=== PATIENT | female | born 1975 | race Caucasian/White ===

== ENCOUNTER 2016-11-14 13:30 | Inpatient (IN) | payer OTHER ==
[2016-11-14] MEDS ORDERED: AMPICILLIN - 2 GM in SODIUM CHLORIDE 100 ML IVPB ONE (14:30)
[2016-11-14 14:38] VITALS: BMI 39.2
[2016-11-14 15:03] LABS: INR 0.86 (0.82-1.09); PROTHROMBIN TIME (PATIENT) 9.4 SEC (9.98-11.88)
[2016-11-14 15:06] LABS: ACTIVATED PTT 29.2 SECONDS (26.9-34.4)
--- NOTE | 2016-11-14 17:17 | HP ---
Admitting History and Physical - Admission Chief Complaint: post dates, iol History of Present Illness: 41 y/o at 40 weeks, iol, 3 cm, pt park of care History Source: Patient Limitations to Obtaining History: No Limitations - Past Medical History [employer]: No: Alzheimer's, CVA, Dementia, Migraine, Multiple Sclerosis, Peripheral Neuropathy, Parkinson's, Seizure, Syncope, TIA, Vertigo, Other Cardiovascular: No: AFIB, Aneurysm, Aortic Insufficiency, Aortic Stenosis, CAD, CHF, Deep Vein Thrombosis, HTN, Hyperlipdemia, ID, Mitral Insufficiency, Mitral Stenosis, Murmur, Pulmonary Hypertension, Other Pulmonary: No: Asthma, Bronchitis, Cancer, COPD, O2 Dependent, Pneumonia, Previously Intubated, Pulmonary Embolus, Pulmonary Fibrosis, Sleep Apnea, Other Gastrointestinal: No: Ascites, Cancer, Constipation, Crohn's Disease, Diverticulitis, Diverticulosis, Esophageal Varices, Gastritis, GERD, GI Bleed, Hemorrhoids, Hiatal Hernia, Inflamatory Bowel Disease, Irritable Bowel Disease, Pancreatitis, Peptic Ulcer Disease, Ulcerative Colitis, Other Hepatobiliary: No: Cirrhosis, Cholelithiasis, Cholecystitis, Choledocholithiasis , Hepatitis A, Hepatitis B, Hepatitis C, Other Reproductive: No: Ectopic , Endometriosis, Fibroids, PID, Polycystic Ovary Syndrome, Postmenopausal, Other ...: 5 ...Para: 4 Heme/Onc: No: Anemia, B12 Deficiency, Bleeding Disorder, Cancer, Current Chemotherapy, Current Radiation Therapy, Hemochromatosis, Hypercoaguable State, Myeloproliferative Synd, Sickle Cell Disease, Sickle Cell Trait, Thrombocytopenia, Other Infectious Disease: No: AIDS, C-Diff, Herpes Zoster, HIV, MRSA, STD's, Tuberculosis, VREF, Other Psych: No: Addictions, Anxiety, Bipolar, Depression, Panic, Psychosis, Schizophrenia, Other ENT: No: Allergic Rhinitis, Sinusitis, Other Endocrine: No: Jonatan's Disease, Dwight's Disease, Diabetes Insipidus, Diabetes Mellitus, Hyperparathyroidism, Hyperthyroidism, Hypothyroidism, Osteopenia, SIADH, Other - Past Surgical History Past Surgical History: No: None, AAA Repair, AICD, Amputation, Appendectomy, Arthrosocopy, AV Fistula/Graft, Bariatric Surgery, Breast Biopsy, Bypass, CABG, Carotid Endarterectomy, Cataract Removal, Cholecystectomy, Colectomy, Colonoscopy, Colostomy, Craniotomy, , Cystectomy, Hernia Repair, Hysterectomy, Ileal Conduit, Ileosotomy, Joint Replacement, Kidney Transplant, Laminectomy, Liver Transplant, Mastectomy, Nephrectomy, Oopherectomy, Orchiectomy, Permanent Pacemaker, Prostatectomy, Splenectomy, Stent, Thoracotomy , TURP, Tonsillectomy, Tubal Ligation, Upper Endoscopy, Valve Replacement, Vasectomy, Vein Stripping/Ligation - Advance Directives Advance Directives: No: Living Will, Health Care Proxy, DNR, Organ Donor, Tissue Donor, MOLST - Smoking History Smoking history: Never smoked Have you smoked in the past 12 months: No - Alcohol/Substance Use Hx Alcohol Use: No History of Substance Use: denies: None, Cocaine, Heroin, Marijuana, Prescription , Tranquilizers - Social History Usual Living Arrangement: No: Alone, With Spouse, With Parent, With Significant Other, With Child, Assisted Living, Retirement, Other Home Medications - Allergies Allergies/Adverse Reactions: Allergies Allergy/AdvReac Type Severity Reaction Status Date / Time No Known Allergies Allergy Verified 11/14/16 14:27 - Home Medications Home Medications: Ambulatory Orders Vit No.130/Iron/FA [ Vitamins] 1 each PO DAILY 11/14/16 Review of Systems - Review of Systems Constitutional: reports: No Symptoms Eyes: reports: No Symptoms HENT: reports: No Symptoms Neck: reports: No Symptoms Cardiovascular: reports: No Symptoms Respiratory: reports: No Symptoms Gastrointestinal: reports: No Symptoms Genitourinary: reports: No Symptoms Breasts: reports: No Symptoms Reported Musculoskeletal: reports: No Symptoms Integumentary: reports: No Symptoms Neurological: reports: No Symptoms Endocrine: reports: No Symptoms Physical Examination Vital Signs: Vital Signs Temperature 98.2 F 11/14/16 16:00 Pulse Rate 69 11/14/16 16:00 Respiratory Rate 20 11/14/16 16:00 Blood Pressure 123/56 11/14/16 16:00 O2 Sat by Pulse Oximetry (%) Constitutional: Yes: Well Nourished Eyes: Yes: WNL HENT: Yes: WNL Neck: Yes: WNL Cardiovascular: Yes: WNL Respiratory: Yes: WNL Gastrointestinal: Yes: WNL ...Rectal Exam: Yes: WNL Renal/: Yes: WNL Breast(s): Yes: WNL Musculoskeletal: Yes: WNL Extremities: Yes: WNL Integumentary: Yes: WNL Neurological: Yes: WNL ...Motor Strength: WNL Assessment/Plan as above admit labs pitocin
[2016-11-14] MEDS ORDERED: OXYTOCIN 15 UNITS/ LR 250 ML 250 ML IVPB SCH (17:30)
[2016-11-14] MEDS ORDERED: DEXTROSE 5%-LACTATED RINGERS 1,000 ML IV SCH (17:30)
--- NOTE | 2016-11-14 18:12 | PN ---
Ante-Partal Exam - Subjective Vital Signs: Vital Signs Temperature 98.8 F 11/14/16 18:00 Pulse Rate 74 11/14/16 18:00 Respiratory Rate 18 11/14/16 18:00 Blood Pressure 131/61 11/14/16 18:00 O2 Sat by Pulse Oximetry (%) Bleeding: No Headache: No Visual changes: No Right upper quadrant pain: No - Contractions Contractions: Yes Regularity: Regular Intensity: Moderate Monitor Mode: External - Exam during Labor Heart Rate: 150 Variability: Moderate Category: I Monitor Accelerations: Present Monitor Decelerations: None Exam: Vaginal Dilatation (cm): 3 Effacement (%): 60 Amniotic Membrane Status: Ruptured Amniotic Fluid: Clear, Blood Stained
[2016-11-14] MEDS ORDERED: AMPICILLIN - 1 GM in SODIUM CHLORIDE 100 ML IVPB ONE (18:30)
--- NOTE | 2016-11-14 19:28 | PN ---
Ante-Partal Exam - Subjective Vital Signs: Vital Signs Temperature 98.7 F 11/14/16 19:00 Pulse Rate 70 11/14/16 19:00 Respiratory Rate 18 11/14/16 19:00 Blood Pressure 128/57 11/14/16 19:00 O2 Sat by Pulse Oximetry (%) Bleeding: No Headache: No Visual changes: No Right upper quadrant pain: No - Contractions Contractions: Yes Regularity: Regular Intensity: Mild/Mod Monitor Mode: External - Exam during Labor Heart Rate: 5 Category: I Monitor Accelerations: Present Monitor Decelerations: None Exam: Vaginal Dilatation (cm): 5 Effacement (%): 80 Amniotic Membrane Status: Ruptured Nitrazine Test: Positive Station: -1
[2016-11-14 20:50] LABS: BASOPHIL 0.8 % (0-2.0); EOSINOPHIL 0.6 % (0-4.5); MCH 31.7 pg (25.7-33.7); MCHC 33.8 g/dl (32.0-36.0); MEAN CELL VOLUME 93.6 fl (80-96); NEUTROPHILS 66.2 % (42.8-82.8); PLATELET COUNT 214 K/MM3 (134-434); RDW 12.9 % (11.6-15.6); WHITE BLOOD COUNT 10.4 K/mm3 (4.0-10.0)
--- NOTE | 2016-11-14 20:53 | PN ---
Ante-Partal Exam - Subjective Vital Signs: Vital Signs Temperature 98.7 F 11/14/16 19:00 Pulse Rate 70 11/14/16 19:00 Respiratory Rate 18 11/14/16 19:00 Blood Pressure 128/57 11/14/16 19:00 O2 Sat by Pulse Oximetry (%) Headache: No Visual changes: No Right upper quadrant pain: No - Contractions Contractions: No - Exam during Labor Category: I Monitor Accelerations: Present Monitor Decelerations: None Exam: Vaginal Dilatation (cm): 9 Effacement (%): 100 Amniotic Membrane Status: Ruptured Nitrazine Test: Positive Amniotic Fluid: Clear Presentation: Vertex Station: +1
[2016-11-14] MEDS: OXYTOCIN 20 UNITS in 0.9% NS 1,000 ML IV SCH (21:00)
[2016-11-14] MEDS ORDERED: IBUPROFEN 600 MG TABLET (FP) PO PRN (21:09)
[2016-11-14] MEDS ORDERED: WITCH HAZEL 50% (TUCKS) 40 PAD/JAR PAD TP PRN (21:09)
[2016-11-14] MEDS ORDERED: BENZOCAINE 28 GM HEMORRHOIDAL OINTMENT TP PRN (21:09)
[2016-11-14] MEDS ORDERED: ACETAMINOPHEN 325 MG TABLET (FP) PO PRN (21:09)
[2016-11-14] MEDS ORDERED: METHYLERGONOVINE MALEATE 0.2 MG/1 ML AMP IM PRN (21:09)
[2016-11-14] MEDS ORDERED: BENZOCAINE 20% 57 GM BOTTLE TP PRN (21:09)
[2016-11-14] MEDS ORDERED: BISACODYL 10 MG SUPP.RECT RC PRN (21:09)
--- NOTE | 2016-11-14 21:09 | PN ---
Delivery - Delivery Vaginal Delivery: No Problems Type of Anesthesia: None Episiotomy/Laceration: Periurethral Extnsion/lac EBL (cc): 300 (repaired with single interupted) Delivery, Single - Feeding Plan Initial Plan: Elected not to breastfeed exclusively throughout hospitalization
[2016-11-14 21:20] LABS: CALCIUM 8.3 mg/dL (8.5-10.1)
[2016-11-14 21:22] LABS: COCKROFT - GAULT 224.9865; CREATININE 0.5 mg/dL (0.55-1.02)
[2016-11-14] MEDS: AMPICILLIN - 100 ML IVPB SCH (22:30)
[2016-11-15] MEDS: OXYTOCIN 20 UNITS in 0.9% NS 1,000 ML IV SCH ×2 (00:10→07:30)
--- NOTE | 2016-11-15 03:29 | PN ---
Post Progress Note Type of Delivery: Vital Signs: Vital Signs Temperature 98 F 11/15/16 01:29 Pulse Rate 70 11/15/16 01:29 Respiratory Rate 18 11/15/16 01:29 Blood Pressure 122/56 11/15/16 01:29 O2 Sat by Pulse Oximetry (%) Breast Exam: Yes: Soft Uterus: Yes: Fundus Firm Incision: Yes: Dressing dry and intact Abdomen/GI: Yes: Abdomen soft Lochia: Yes: Rubra Lochia, amount: Small Extremities: Yes: Calves non-tender Perineum: Yes: Intact Activity: Ambulating - Labs Labs: CBC WBC 10.4 K/mm3 (4.0-10.0) H 11/14/16 20:38 RBC 4.43 M/mm3 (3.60-5.2) 11/14/16 20:38 Hgb 14.0 GM/dL (10.7-15.3) 11/14/16 20:38 Hct 41.4 % (32.4-45.2) 11/14/16 20:38 MCV 93.6 fl (80-96) 11/14/16 20:38 MCHC 33.8 g/dl (32.0-36.0) 11/14/16 20:38 RDW 12.9 % (11.6-15.6) 11/14/16 20:38 Plt Count 214 K/MM3 (134-434) 11/14/16 20:38 MPV 9.0 fl (7.5-11.1) 11/14/16 20:38 Neutrophils % 66.2 % (42.8-82.8) 11/14/16 20:38 Lymphocytes % 26.2 % (8-40) 11/14/16 20:38 Monocytes % 6.2 % (3.8-10.2) 11/14/16 20:38 Eosinophils % 0.6 % (0-4.5) 11/14/16 20:38 Basophils % 0.8 % (0-2.0) 11/14/16 20:38 Assessment/Plan oob reg diet
[2016-11-15 09:01] LABS: BASOPHIL 0.6 % (0-2.0); EOSINOPHIL 0.6 % (0-4.5); MCH 32.2 pg (25.7-33.7); MCHC 34.3 g/dl (32.0-36.0); MEAN CELL VOLUME 93.9 fl (80-96); NEUTROPHILS 70.4 % (42.8-82.8); PLATELET COUNT 169 K/MM3 (134-434); RDW 13.1 % (11.6-15.6); WHITE BLOOD COUNT 10.1 K/mm3 (4.0-10.0)
[2016-11-15] MEDS: AMPICILLIN - 100 ML IVPB SCH (09:14)
[2016-11-15] MEDS ORDERED: SENNOSIDES/DOCUSATE COMBO (SENNA PLUS) TABLET (UD) PO PRN (22:00)
[2016-11-16 08:06] VITALS: BP 119/53; PULSE 59; TEMP 98.7
== END 2016-11-16 12:30 | disposition home or self-care (01) | DRG 560 ==
LOC: JLDR 13:30 → J3W 11-15 01:10
PROVIDERS: ADMIT Obstetrics & Gynecology; ATTEND Obstetrics & Gynecology
PROC: 10E0XZZ Delivery of Products of Conception, External Approach (ICD-10-PCS; principal; 2016-11-14)
PROC: 0UQMXZZ Repair Vulva, External Approach (ICD-10-PCS; 2016-11-14)
DX: O48.0 Post-term pregnancy (principal); O71.82 Other specified trauma to perineum and vulva; Z3A.40 40 weeks gestation of pregnancy; Z37.0 Single live birth
CPT/HCPCS: 36415; 59409; 80048; 85025; 85610; 85730; 86593; 86850; 86900; 86901